=== PATIENT | male | born 1980 | race Hispanic/Latino ===

== ENCOUNTER 2024-07-15 15:54 | Emergency (ER) | payer OTHER ==
[~2024-07-15] VITALS: Ht 182.9 cm; Wt 127.0 kg
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
--- NOTE | 2024-07-15 17:00 | HMCIMG ---
CT CERVICAL SPINE W/O CONTRAST HISTORY: [facility] COMPARISON: None TECHNIQUE: Multiple sequential axial images of the cervical spine were obtained including post processing sagittal and coronal reconstruction images. Patient was not given contrast through intravenous route. FINDINGS: There are degenerative changes with cervical spine spondylosis. There is straightening of normal lordotic cervical curvature which may be related to muscle spasm or positioning. There is no loss of vertebral height. Evaluation for disc and cord pathology is limited with CT study. No evidence of fracture or dislocation is seen. IMPRESSION: 1. No fracture is seen. CT was performed with one or more following dose reduction techniques: automated exposure control, adjustment of the mA and kv according to patient's size, or use of a iterative reconstruction technique.
[2024-07-15] MEDS ORDERED: KETO10TA2 PO (17:05)
[2024-07-15] MEDS ORDERED: CYCL10TA16 PO (17:05)
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
[2024-07-15 17:30] VITALS: BP 130/92; PULSE 80; RESP 18; TEMP 98.1; O2SAT 97
== END 2024-07-15 17:30 | disposition home or self-care (01) ==
LOC: EDH 15:54
DX: S16.1XXA Strain of muscle, fascia and tendon at neck level, initial encounter (principal); R51.9 Headache, unspecified; V89.2XXA Person injured in unspecified motor-vehicle accident, traffic, initial encounter; Y93.89 Activity, other specified; Y92.488 Other paved roadways as the place of occurrence of the external cause; Y99.8 Other external cause status
CPT/HCPCS: 70450; 72125; 99284